=== PATIENT | female | born 1985 | race African-American/Black ===

== ENCOUNTER 2023-08-21 15:50 | Observation (INO) | payer OTHER ==
[~2023-08-21] VITALS: Ht 165.1 cm; Wt 132.0 kg
[2023-08-21] MEDS ORDERED: ACET-1080 PO (16:57)
[2023-08-21] MEDS ORDERED: ACETAMINOPHEN 500 MG TAB PO ONE (17:00)
[2023-08-21 17:08] VITALS: BP 133/75; PULSE 93; RESP 18; TEMP 98.7; O2SAT 98
[2023-08-21] MEDS ORDERED: PREN-96 PO (19:03)
== END 2023-08-21 21:57 | disposition home or self-care (01) ==
LOC: ER 15:50 → LDRP 17:11
PROVIDERS: ADMIT Obstetrics & Gynecology; ATTEND Obstetrics & Gynecology
DX: O9A.213 Injury, poisoning and certain other consequences of external causes complicating pregnancy, third trimester (principal); O26.893 Other specified pregnancy related conditions, third trimester; S39.012A Strain of muscle, fascia and tendon of lower back, initial encounter; R10.9 Unspecified abdominal pain; Z3A.30 30 weeks gestation of pregnancy; Z91.040 Latex allergy status; V49.9XXA Car occupant (driver) (passenger) injured in unspecified traffic accident, initial encounter; Y93.89 Activity, other specified; Y92.89 Other specified places as the place of occurrence of the external cause; Y99.8 Other external cause status
CPT/HCPCS: 59025; 76805; 81002; 94760; 99284; G0378